=== PATIENT | male | born 2000 | race Caucasian/White ===

== ENCOUNTER 2018-03-30 08:12 | Emergency (ER) | payer OTHER ==
[2018-03-30 08:16] VITALS: BP 143/80
--- NOTE | 2018-03-30 08:25 | EDPHY ---
H & P Time Seen by Provider: 03/30/18 08:17 HPI/ROS: CHIEF COMPLAINT: Right ankle injury HISTORY OF PRESENT ILLNESS: 18-year-old male presents to the emergency department with isolated injury to the right ankle. Patient states around midnight last night he was climbing over a fence and landed and thinks that he rolled his right ankle. He had been drinking. He denies hitting his head or losing consciousness. Denies any other trauma or injury. He has pain now trying to bear weight. He does not feel that he can actually bear weight on it currently. No previous fractures or injuries to the right ankle. ROS: Denies numbness or tingling in his toes, pain in his right knee or hip. Denies symptoms in the left lower extremity. Past Medical/Surgical History: Negative Social History: Single Smoking Status: Never smoked Physical Exam: On examination, the patient has some swelling and some ecchymosis noted both to medial and lateral aspect of his right ankle. He has tenderness with palpation both over the lateral malleolus and medial malleolus. He has limited dorsiflexion secondary to pain. He has full plantar flexion. Difficult to assess ligament stability given his swelling and pain. Normal sensation to light touch with normal 2 point discrimination. Strong dorsalis pedis pulse on the dorsal aspect of his right foot. Achilles tendon is intact. Calf is nontender. His right knee is nontender. Full range of motion of the left lower extremity and upper extremities bilaterally. No visible signs of trauma to his head. Constitutional: Initial Vital Signs Temperature (C) 36.6 C 03/30/18 08:14 Heart Rate 78 03/30/18 08:14 Respiratory Rate 18 03/30/18 08:14 Blood Pressure 143/80 H 03/30/18 08:14 O2 Sat (%) 94 03/30/18 08:14 O2 Delivery Mode Room Air Allergies/Adverse Reactions: No Known Allergies Allergy (Unverified 03/30/18 08:14) Home Medications: Medication Instructions Recorded NK [No Known Home Meds] 03/30/18 MDM/Departure - MDM Imaging Results: Imaging Impressions Ankle X-Ray 03/30/18 08:17 Impression: 1. Small chip or avulsion fracture adjacent to the distal tip of the medial malleolus with associated soft tissue swelling medially. 2. Mild irregularity along the lateral talar dome that could be related to focal fracture or possibly focus of osteonecrosis. Imaging: I viewed and interpreted images myself Procedures: The patient was placed in a Mcfarland boot and examined post application in good placement with normal TOPOGRAPHIC COMPUTATOR. ED Course/Re-evaluation: 18-year-old male presents to the emergency department with right ankle injury. X-rays reveal possible talar dome fracture as well as avulsion fracture off the medial malleolus. He was placed in a Mcfarland boot, he was told to be non weight -bearing. He has his own crutches. He was given orthopedic referral will be seen index 2-3 days. I encouraged ice and elevating to help relieve swelling and pain. He will take anti-inflammatory such as ibuprofen. He was instructed to return to the emergency department if he had any change in symptoms or if he felt worse in any way. - Depart Disposition: Home, Routine, Self-Care Clinical Impression: Closed right ankle fracture Qualifiers: Encounter type: initial encounter Qualified Code(s): S82.891A - Other fracture of right lower leg, initial encounter for closed fracture Condition: Good Instructions: Ankle Fracture (ED) Additional Instructions: Mcfarland boot for comfort and support. Do not bear weight on your right ankle until follow-up with orthopedic surgeon on-call. Use crutches. Ibuprofen 600 mg every 8 hr as needed for pain. Ice, elevate to help relieve swelling and pain. Referrals: Magdalene Trujillo MD [Medical Doctor] - 2-3 days without fail (Orthopedic surgeon on- call)
== END 2018-03-30 08:44 | disposition home or self-care (01) ==
DX: S82.891A Other fracture of right lower leg, initial encounter for closed fracture (principal); X50.9XXA Other and unspecified overexertion or strenuous movements or postures, initial encounter; Y99.8 Other external cause status; Y93.39 Activity, other involving climbing, rappelling and jumping off
CPT/HCPCS: L4386